=== PATIENT | male | born 1970 | race Caucasian/White ===

== ENCOUNTER 2022-03-10 04:03 | Emergency (ER) | payer MEDICARE ==
[~2022-03-10] VITALS: Ht 188 cm; Wt 86.4 kg
[2022-03-10 05:37] VITALS: BP 141/87
[2022-03-10 05:45] LABS: BASOPHILS % (AUTO) 0.9 % (0.0-2.0); HEMATOCRIT 43.5 % (41-53); LYMPHOCYTES % (AUTO) 18.1 % (22.0-44.0); MEAN CORPUSCULAR HEMOGLOBIN 30.3 pg (26.0-34.0); MEAN CORPUSCULAR HGB CONC 34.4 G/dL (31.0-37.0); MEAN CORPUSCULAR VOLUME 88 fL (80-100); MONOCYTES # (AUTO) 0.9 K/uL (0.1-1.0); MONOCYTES % (AUTO) 8.5 % (2.0-9.0); NEUTROPHILS # (AUTO) 7.7 K/uL (1.8-7.7); NEUTROPHILS % (AUTO) 71.5 % (40.0-70.0); PLATELET COUNT (AUTO) 299 K/uL (150-450); RED BLOOD CELL COUNT(AUTO) 4.93 MIL/uL (4.50-5.90)
[2022-03-10 05:52] LABS: ANION GAP 4 mmol/L (8-16); CALCIUM, TOTAL 9.5 mg/dL (8.8-10.5); CARBON DIOXIDE 31 mmol/L (22-29); CHLORIDE 104 mmol/L (98-107); CREATININE 1.02 mg/dL (0.60-1.30); GLUCOSE,RANDOM 100 mg/dL (70-110); POTASSIUM 3.6 mmol/L (3.5-5.1); SODIUM SERUM 139 mmol/L (136-145); UREA NITROGEN, BLOOD 7 mg/dL (7-18)
[2022-03-10 05:53] LABS: GLOMERULAR FILTR. RATE CALC > 60 mL/min (>60)
[2022-03-10 05:55] LABS: COVID AG,FIA SOURCE NASOPHARYNGEAL
[2022-03-10 05:59] LABS: ALANINE AMINOTRANSFERASE 41 U/L (12-78); ALKALINE PHOSPHATASE 122 U/L (46-116); ASPARTATE AMINOTRANSFERASE 30 U/L (15-37); BILIRUBIN,TOTAL 0.7 mg/dL (0.1-1.0)
== END 2022-03-10 09:15 | disposition home or self-care (01) ==
LOC: EMS 04:04
DX: F20.9 Schizophrenia, unspecified (principal); F31.9 Bipolar disorder, unspecified; F17.210 Nicotine dependence, cigarettes, uncomplicated; F12.90 Cannabis use, unspecified, uncomplicated; Z20.822 Contact with and (suspected) exposure to COVID-19
CPT/HCPCS: 99284; 87426; 80053; 85025; 36415; G0480; 99285

== ENCOUNTER 2022-03-13 15:31 | Inpatient (IN) | payer MEDICARE ==
[~2022-03-13] VITALS: Ht 188 cm; Wt 80.3 kg
[2022-03-13 16:23] LABS: BASOPHILS % (AUTO) 0.6 % (0.0-2.0); EOSINOPHILS % (AUTO) 1.8 % (1.0-6.0); HEMATOCRIT 40.2 % (41-53); HEMOGLOBIN 13.6 g/dL (13.5-17.5); LYMPHOCYTES % (AUTO) 23.5 % (22.0-44.0); MEAN CORPUSCULAR HEMOGLOBIN 30.4 pg (26.0-34.0); MEAN CORPUSCULAR HGB CONC 33.9 G/dL (31.0-37.0); MEAN CORPUSCULAR VOLUME 90 fL (80-100); MONOCYTES # (AUTO) 0.7 K/uL (0.1-1.0); NEUTROPHILS # (AUTO) 5.6 K/uL (1.8-7.7); NEUTROPHILS % (AUTO) 66.1 % (40.0-70.0); PLATELET COUNT (AUTO) 255 K/uL (150-450); RED BLOOD CELL COUNT(AUTO) 4.47 MIL/uL (4.50-5.90); RED CELL DISTRIBUTION WIDTH 13.2 % (11.5-14.5)
[2022-03-13 16:46] LABS: ANION GAP 10 mmol/L (8-16); CALCIUM, TOTAL 9.1 mg/dL (8.8-10.5); CARBON DIOXIDE 24 mmol/L (22-29); CHLORIDE 105 mmol/L (98-107); CREATININE 0.75 mg/dL (0.60-1.30); GLUCOSE,RANDOM 86 mg/dL (70-110); POTASSIUM 3.4 mmol/L (3.5-5.1); SODIUM SERUM 139 mmol/L (136-145); UREA NITROGEN, BLOOD 7 mg/dL (7-18)
[2022-03-13 16:49] LABS: ALANINE AMINOTRANSFERASE 46 U/L (12-78); ALBUMIN 3.5 g/dL (3.4-5.0); ALKALINE PHOSPHATASE 105 U/L (46-116); ASPARTATE AMINOTRANSFERASE 43 U/L (15-37); TOTAL PROTEIN, SERUM 6.4 g/dL (6.4-8.2)
[2022-03-13 16:51] LABS: GLOMERULAR FILTR. RATE CALC > 60 mL/min (>60)
[2022-03-13 20:09] LABS: COVID AG,FIA SOURCE NASOPHARYNGEAL
[2022-03-13 22:28] VITALS: BP 113/76
[2022-03-13 22:43] VITALS: BP 113/76
[2022-03-13] MEDS ORDERED: INFLUENZA VIRUS VACCINE QVS 2022-23 (6MO+)/PF 60 MCG/0.5 ML SYRINGE IM. ONE (22:45)
[2022-03-14 09:13] VITALS: BP 127/58
[2022-03-14] MEDS ORDERED: IBUPROFEN 400 MG TABLET PO PRN (14:30)
[2022-03-14] MEDS ORDERED: ONDANSETRON HCL 4 MG TABLET PO PRN (14:30)
[2022-03-14] MEDS ORDERED: DOCUSATE SODIUM 100 MG CAPSULE PO PRN (14:30)
[2022-03-14] MEDS ORDERED: ACETAMINOPHEN 325 MG TABLET PO PRN (14:30)
[2022-03-14] MEDS ORDERED: MAGNESIUM HYDROXIDE SUSPENSION 30 ML UDCUP PO PRN (14:30)
[2022-03-14] MEDS ORDERED: PETROLATUM,WHITE 28 GM JELLY TP PRN (14:30)
[2022-03-14] MEDS ORDERED: ALBUTEROL SULFATE HFA 90 MCG/PUFF 8 GM INHALER IH PRN (14:30)
[2022-03-14] MEDS ORDERED: GuaiFENesin/D-METHORPHAN [SUGAR-FREE] 200-20MG/10 ML SYRUP UDCUP PO PRN (14:30)
[2022-03-14] MEDS ORDERED: CloNIDine HCL 0.1 MG TABLET PO PRN (14:30)
[2022-03-14] MEDS ORDERED: LOPERAMIDE HCL 2 MG CAPSULE PO PRN (14:30)
[2022-03-14] MEDS ORDERED: MAG HYDROX/AL HYDROX/SIMETH ES 30 ML SUSPENSION UDCUP PO PRN (14:30)
[2022-03-14] MEDS: LORazepam 2 MG TABLET PO PRN (14:33)
[2022-03-14] MEDS: HALOPERIDOL 5 MG TABLET PO PRN (14:33)
[2022-03-14 16:11] VITALS: BP 124/64
[2022-03-14] MEDS ORDERED: OLANZapine 5 MG TABLET PO SCH (21:00)
[2022-03-15 09:53] VITALS: BP 122/63
[2022-03-15] MEDS: RisperiDONE 2 MG TABLET PO SCH ×3 (12:00→20:15)
[2022-03-15 16:40] VITALS: BP 127/66
[2022-03-16 01:10] VITALS: BP 125/75
[2022-03-16] MEDS: NICOTINE 14 MG/24 HOUR PATCH TD PRN (03:50)
[2022-03-16 08:56] LABS: COVID AG,FIA SOURCE NASAL SWAB
[2022-03-16] MEDS: RisperiDONE 2 MG TABLET PO SCH ×2 (09:00→21:33)
[2022-03-16 09:07] VITALS: BP 144/76
[2022-03-16 18:15] VITALS: BP 150/80
[2022-03-16] MEDS: LORazepam 2 MG TABLET PO PRN (20:56)
[2022-03-16] MEDS: ZOLPIDEM TARTRATE 10 MG TABLET PO PRN (20:56)
[2022-03-17] MEDS: RisperiDONE 2 MG TABLET PO SCH ×2 (08:28→21:00)
[2022-03-17 08:47] VITALS: BP 125/69
[2022-03-17 16:18] VITALS: BP 107/65
[2022-03-17 16:19] VITALS: BP 107/65
[2022-03-17] MEDS: LORazepam 2 MG TABLET PO PRN (23:19)
[2022-03-17] MEDS: ZOLPIDEM TARTRATE 10 MG TABLET PO PRN (23:19)
[2022-03-18 08:03] VITALS: BP 155/88
[2022-03-18] MEDS: RisperiDONE 2 MG TABLET PO SCH ×2 (08:14→20:20)
[2022-03-18] MEDS: NICOTINE 14 MG/24 HOUR PATCH TD PRN (08:16)
[2022-03-18 16:05] VITALS: BP 126/85
[2022-03-18] MEDS: LORazepam 2 MG TABLET PO PRN ×2 (16:07→22:55)
[2022-03-18] MEDS: ZOLPIDEM TARTRATE 10 MG TABLET PO PRN (22:55)
[2022-03-19] MEDS: RisperiDONE 2 MG TABLET PO SCH ×2 (08:14→21:00)
[2022-03-19 08:27] VITALS: BP 134/86
[2022-03-19 08:28] VITALS: BP 134/86
[2022-03-19 16:06] VITALS: BP 130/71
[2022-03-20] MEDS: ZOLPIDEM TARTRATE 10 MG TABLET PO PRN ×2 (00:20→21:14)
[2022-03-20] MEDS: LORazepam 2 MG TABLET PO PRN ×4 (00:20→21:14)
[2022-03-20 08:00] VITALS: BP 119/62
[2022-03-20] MEDS: RisperiDONE 2 MG TABLET PO SCH ×2 (09:05→21:02)
[2022-03-20] MEDS: NICOTINE 14 MG/24 HOUR PATCH TD PRN (11:41)
[2022-03-20 16:00] VITALS: BP 123/70
[2022-03-21] MEDS: RisperiDONE 2 MG TABLET PO SCH ×2 (08:16→20:31)
[2022-03-21] MEDS: LORazepam 2 MG TABLET PO PRN ×2 (08:17→13:19)
[2022-03-21] MEDS: NICOTINE 14 MG/24 HOUR PATCH TD PRN (08:20)
[2022-03-21 09:00] VITALS: BP 133/98
[2022-03-21] MEDS: ZOLPIDEM TARTRATE 10 MG TABLET PO PRN (20:57)
[2022-03-22] MEDS: LORazepam 2 MG TABLET PO PRN ×3 (04:17→16:34)
[2022-03-22 08:05] VITALS: BP 130/78
[2022-03-22] MEDS: NICOTINE 14 MG/24 HOUR PATCH TD PRN (08:13)
[2022-03-22] MEDS: RisperiDONE 2 MG TABLET PO SCH ×2 (08:13→20:05)
[2022-03-23] MEDS: LORazepam 2 MG TABLET PO PRN ×2 (04:03→10:18)
[2022-03-23 08:00] VITALS: BP 152/77
[2022-03-23] MEDS: RisperiDONE 2 MG TABLET PO SCH ×2 (10:18→20:02)
[2022-03-23] MEDS: NICOTINE 14 MG/24 HOUR PATCH TD PRN (11:35)
[2022-03-24] MEDS: LORazepam 2 MG TABLET PO PRN ×3 (00:31→18:25)
[2022-03-24] MEDS: NICOTINE 14 MG/24 HOUR PATCH TD PRN (06:19)
[2022-03-24 08:00] VITALS: BP 107/68
[2022-03-24] MEDS: RisperiDONE 2 MG TABLET PO SCH ×2 (08:26→20:12)
[2022-03-24 16:59] VITALS: BP 123/71
[2022-03-24] MEDS: ZOLPIDEM TARTRATE 10 MG TABLET PO PRN (20:12)
[2022-03-25] MEDS: LORazepam 2 MG TABLET PO PRN ×3 (03:07→15:51)
[2022-03-25 08:09] VITALS: BP 103/67
[2022-03-25] MEDS: RisperiDONE 2 MG TABLET PO SCH ×2 (08:16→20:49)
[2022-03-25] MEDS: NICOTINE 14 MG/24 HOUR PATCH TD PRN (08:16)
[2022-03-25] MEDS: HALOPERIDOL 5 MG TABLET PO PRN ×2 (08:16→15:51)
[2022-03-25 12:20] LABS: COVID AG,FIA SOURCE NASOPHARYNGEAL
[2022-03-25 16:04] VITALS: BP 114/71
[2022-03-26] MEDS: LORazepam 2 MG TABLET PO PRN ×3 (02:15→17:15)
[2022-03-26 08:00] VITALS: BP 126/65
[2022-03-26] MEDS: RisperiDONE 2 MG TABLET PO SCH ×2 (08:25→20:37)
[2022-03-26] MEDS: HALOPERIDOL 5 MG TABLET PO PRN ×2 (08:25→17:15)
[2022-03-26] MEDS: ZOLPIDEM TARTRATE 10 MG TABLET PO PRN (20:26)
[2022-03-27] MEDS: HALOPERIDOL 5 MG TABLET PO PRN ×3 (02:36→12:13)
[2022-03-27] MEDS: LORazepam 2 MG TABLET PO PRN ×3 (02:36→12:13)
[2022-03-27] MEDS: RisperiDONE 2 MG TABLET PO SCH ×2 (08:03→20:08)
[2022-03-27 09:00] VITALS: BP 109/79
[2022-03-27 16:00] VITALS: BP 104/64
[2022-03-27] MEDS: ZOLPIDEM TARTRATE 10 MG TABLET PO PRN (20:08)
[2022-03-28] MEDS: LORazepam 2 MG TABLET PO PRN ×2 (06:43→11:02)
[2022-03-28 08:00] VITALS: BP 101/80
[2022-03-28] MEDS: RisperiDONE 2 MG TABLET PO SCH (08:52)
[2022-03-28] MEDS: NICOTINE 14 MG/24 HOUR PATCH TD PRN (08:58)
[2022-03-28] MEDS: HALOPERIDOL 5 MG TABLET PO PRN (11:02)
[2022-03-28 16:29] VITALS: BP 102/77
[2022-03-28] MEDS ORDERED: RISP2TAB86 PO (16:49)
== END 2022-03-28 17:15 | disposition home or self-care (01) | DRG 885 ==
LOC: EMS 15:35 → 3EI 19:18 → 3EC 03-16 19:24
PROVIDERS: ADMIT Psychiatry & Neurology Psychiatry; ATTEND Psychiatry & Neurology Psychiatry
DX: F20.1 Disorganized schizophrenia (principal); F31.9 Bipolar disorder, unspecified; F10.10 Alcohol abuse, uncomplicated; E87.6 Hypokalemia; I95.9 Hypotension, unspecified; Z20.822 Contact with and (suspected) exposure to COVID-19; Y90.9 Presence of alcohol in blood, level not specified; Z87.891 Personal history of nicotine dependence; Z79.899 Other long term (current) drug therapy
CPT/HCPCS: 80053; 85025; 99285; G0480